=== PATIENT | male | born 1985 | race African-American/Black ===

== ENCOUNTER 2021-12-16 08:54 | Emergency (ER) | payer MEDICAID, OTHER ==
[~2021-12-16] VITALS: Ht 172.7 cm; Wt 89.0 kg
[2021-12-16] MEDS ORDERED: METH-653 MT (09:21)
[2021-12-16] MEDS ORDERED: IBUP-2029 MT (09:21)
[2021-12-16] MEDS ORDERED: KETOROLAC 60MG/2ML VIAL IM ONE (09:30)
[2021-12-16] MEDS ORDERED: LORAZEPAM 1MG TABLET PO ONE (09:30)
[2021-12-16 09:56] VITALS: BP 126/64
== END 2021-12-16 09:58 | disposition home or self-care (01) ==
LOC: ER 08:54
DX: M54.50 Low back pain, unspecified (principal); F12.90 Cannabis use, unspecified, uncomplicated
CPT/HCPCS: 96372; 99283; J1885

== ENCOUNTER 2022-05-27 14:18 | Emergency (ER) | payer MEDICAID ==
[~2022-05-27] VITALS: Ht 172.7 cm; Wt 80.0 kg
[~2022-05-27 14:18] MED LIST: IBUP-2029 MT; METH-653 MT
[2022-05-27 14:29] VITALS: BP 142/82
== END 2022-05-27 18:32 | disposition home or self-care (01) ==
LOC: ER 14:18
DX: D17.79 Benign lipomatous neoplasm of other sites (principal); I10 Essential (primary) hypertension
CPT/HCPCS: 99281